=== PATIENT | female | born 1995 | race Hispanic/Latino ===

== ENCOUNTER 2018-11-11 17:04 | Inpatient (IN) | payer BC ==
[2018-11-11] MEDS ORDERED: Morphine 4 MG/ML VIAL IVP STA (17:45)
[2018-11-11] MEDS ORDERED: Sodium Chloride 0.9% 1,000 ML IV STA (17:45)
[2018-11-11] MEDS ORDERED: Iohexol 240 (50 ml) PO STA (17:46)
[2018-11-11] MEDS ORDERED: Iohexol 240 (50 ml) ONE (18:02)
[2018-11-11 18:31] LABS: BASO % 0.5 % (0.0-2.0); EOS # 0.1 K/uL (0.0-0.7); EOS % 1.9 % (0.0-4.0); HEMOGLOBIN 13.6 g/dL (12.0-16.0); LYMPH # 2.3 K/uL (1.0-4.3); LYMPH % 40.7 % (20.0-40.0); MEAN CELL VOLUME 89.6 fl (81.0-99.0); MEAN CORPUSCULAR HGB CONC 33.4 g/dL (33.0-37.0); MEAN PLATELET VOLUME 9.2 fl (7.2-11.7); MONO # 0.6 K/uL (0.0-0.8); MONO % 10.1 % (0.0-10.0); NEUT # 2.7 K/uL (1.8-7.0); NEUT % 46.8 % (50.0-75.0); RBC 4.55 Mil/uL (3.80-5.20); RED CELL DISTRIBUTION WIDTH 12.6 % (11.5-14.5); WHITE BLOOD COUNT 5.8 K/uL (4.8-10.8)
[2018-11-11 18:39] LABS: INR 0.9; PROTHROMBIN TIME 10.3 Seconds (9.8-13.1)
[2018-11-11 18:40] LABS: ALB/GLOB RATIO 1.7 (1.0-2.1); ALBUMIN 4.5 g/dL (3.5-5.0); ALT/SGPT 30 U/L (9-52); AST/SGOT 21 U/L (14-36); BLOOD UREA NITROGEN 11 mg/dl (7-17); GFR NON-AFRICAN AMERICAN > 60
[2018-11-11 18:42] LABS: PARTIAL THROMBOPLASTIN TIME 33.8 Seconds (25.6-37.1)
--- NOTE | 2018-11-11 18:49 | ED PDOC ---
HPI: Abdomen Time Seen by Provider: 11/11/18 17:43 Chief Complaint (Nursing): Abdominal Pain Chief Complaint (Provider): Abdominal Pain History Per: Patient History/Exam Limitations: no limitations Onset/Duration Of Symptoms: Days Current Symptoms Are (Timing): Still Present Additional Complaint(s): 23 y/o female with no significant PMHx presents to the ED for evaluation of RLQ pain since 4 PM yesterday. Patient reports of pain to her right pelvic area and RLQ that occasionally radiates down to the right thigh. Patient notes pain is constant but waxes and wanes in intensity. Patient states pain is severe at onset and occurred suddenly. Patient reports pain worsens with walking, sitting up and eating. Otherwise, patient denies back pain, nausea, vomiting, diarrhea, constipation, fever, chills, vaginal bleeding, vaginal discharge and urinary symptoms. PMD: none provided LNMP: Three Weeks Ago Abnormal Vaginal Bleeding: No Last Menstral Period: three weeks ago Past Medical History Reviewed: Historical Data, Nursing Documentation, Vital Signs Vital Signs: Last Vital Signs Temp 98.0 F 11/11/18 17:45 Pulse 85 11/11/18 17:45 Resp 19 11/11/18 17:45 BP 130/90 11/11/18 17:45 Pulse Ox 100 11/11/18 17:45 - Medical History PMH: Seizures - Surgical History Surgical History: No Surg Hx - Family History Family History: States: No Known Family Hx - Social History Current smoker - smoking cessation education provided: No - Home Medications Home Medications: Ambulatory Orders Medication Instructions Recorded Folic Acid 3 mg PO DAILY 11/11/18 Lamotrigine [Lamictal] 150 mg PO BID 11/11/18 Levonorgestrel-Ethin Estradiol 0.1 mg PO DAILY 11/11/18 [Larissia-28 Tablet] - Allergies Allergies/Adverse Reactions: Allergies Allergy/AdvReac Type Severity Reaction Status Date / Time No Known Allergies Allergy Verified 11/11/18 17:44 Review of Systems ROS Statement: Except As Marked, All Systems Reviewed And Found Negative (as per HPI) Constitutional: Negative for: Fever, Chills Gastrointestinal: Positive for: Abdominal Pain (RLQ). Negative for: Nausea, Vomiting, Diarrhea, Constipation Genitourinary Female: Positive for: Pelvic Pain (right). Negative for: Dysuria, Frequency, Hematuria, Vaginal Discharge, Vaginal Bleeding Musculoskeletal: Positive for: Leg Pain (Right Thigh Pain). Negative for: Back Pain Physical Exam - Reviewed Nursing Documentation Reviewed: Yes Vital Signs Reviewed: Yes - Physical Exam Appears: Positive for: In Acute Distress (ACUTE PAINFUL DISTRESS) Head Exam: Positive for: ATRAUMATIC, NORMOCEPHALIC Skin: Positive for: Warm, Dry Eye Exam: Positive for: EOMI, PERRL ENT: Negative for: Pharyngeal Erythema, Tonsillar Exudate Neck: Positive for: Painless ROM, Supple Cardiovascular/Chest: Positive for: Regular Rate, Rhythm. Negative for: Murmur Respiratory: Positive for: Normal Breath Sounds. Negative for: Respiratory Distress Gastrointestinal/Abdominal: Positive for: Tenderness (RLQ tenderneess to palpation with Positive Rovsings. Negative Obturators Sign and PSOAS Sign). Negative for: Mass, Guarding, Rebound Back: Positive for: Normal Inspection. Negative for: Muscle Spasm Extremity: Positive for: Normal ROM. Negative for: Deformity Lymphatic: Negative for: Adenopathy Neurologic/Psych: Positive for: Alert. Negative for: Motor/Sensory Deficits - Laboratory Results Result Diagrams: 11/12/18 06:14 11/11/18 18:20 Lab Results: PT 10.3 Seconds (9.8-13.1) 11/11/18 18:20 INR 0.9 11/11/18 18:20 APTT 33.8 Seconds (25.6-37.1) 11/11/18 18:20 Total Bilirubin 0.2 mg/dl (0.2-1.3) 11/11/18 18:20 AST 21 U/L (14-36) 11/11/18 18:20 ALT 30 U/L (9-52) 11/11/18 18:20 Alkaline Phosphatase 47 U/L (38-126) 11/11/18 18:20 Total Protein 7.2 G/DL (6.3-8.2) 11/11/18 18:20 Albumin 4.5 g/dL (3.5-5.0) 11/11/18 18:20 Globulin 2.7 gm/dL (2.2-3.9) 11/11/18 18:20 Albumin/Globulin Ratio 1.7 (1.0-2.1) 11/11/18 18:20 - ECG O2 Sat by Pulse Oximetry: 100 (RA) Pulse Ox Interpretation: Normal Medical Decision Making Medical Decision Making: Time: 1748 Impression: RLQ Pain Differential include but not limited to ovarian cysts, ovarian torsion, appendicitis, colitis and mesenteric adenitis. Plan: -- Type and Screen -- CMP -- ED Urine -- ED Urine Dipstick -- CBC with Differentials -- PTT -- Prothrombin Time -- Morphine 2 mg IVP -- Sodium Chlorie IV 1000 mls/hr -- Iohexol 50 ml PO -- IV Insertion -- US Transvaginal Time: 2020 US RESULTS FINDINGS: ENDOMETRIUM: Normal thickness measuring 4.9 mm. UTERUS/CERVIX: The uterus appears within normal limits. No uterine fibroid or other mass evident. RIGHT OVARY: Normal Doppler flow. A 12.2 x 7.1 x 7.9 cm predominantly anechoic mass seen within the right ovary. Some fluid-debris level is noted in the dependent portion of the cyst. The possibility of cystadenoma or cystadenocarcinoma should be considered. LEFT OVARY: Normal Doppler flow. No suspicious mass. A 3.2 x 2.5 x 1.9 cm simple cyst is seen within the left ovary. FREE FLUID: No free fluid. IMPRESSION: 1. A large cystic mass containing internal debris is seen within the right ovary. This is thought likely compatible with ovarian cystadenoma or cystadenocarcinoma. 2. A 3.2 x 2.5 cm cyst is noted within the left ovary. Electronically signed on Nov 11, 2018 8:21:03 PM EST by: Sami Hardin M.D., CHATA Certified By [facility] [facility] Fellowship Trained MRI and CT Specialist -- Discussed with patient findings and need to discuss with in-house SEWING ROOM SUPERVISOR for further management. Time: 2099 -- Dr. Fatima evaluated the patient in the ER. Patient to be hospitalized for surgical resection of ovarian ovarian cystadenoma. Scribe Attestation: Documented by Elizabeth Pena, acting as a scribe for Iman Malone MD. Provider Scribe Attestation: All medical record entries made by the Scribe were at my direction and personally dictated by me. I have reviewed the chart and agree that the record accurately reflects my personal performance of the history, physical exam, medical decision making, and the department course for this patient. I have also personally directed, reviewed, and agree with the discharge instructions and disposition. Disposition - Clinical Impression Clinical Impression: Ovarian cystadenoma, Intractable pain - Patient ED Disposition Is Patient to be Admitted: Yes Counseled Patient/Family Regarding: Studies Performed, Diagnosis - Disposition Disposition Time: 21:00 Condition: FAIR - Pt Status Changed To: Hospital Disposition Of: Inpatient - Admit Certification Admit to Inpatient:: After my assessment, the patient will require hospita lization for at least two midnights. This is because of the severity of symptoms shown, intensity of services needed, and/or the medical risk in this patient being treated as an outpatient. - POA Present On Arrival: None
[2018-11-11] MEDS ORDERED: Midazolam 2 MG/2 ML VIAL ONE (22:18)
[2018-11-11] MEDS ORDERED: Propofol 10 mg/ml Inj (20 ML) ONE (22:18)
[2018-11-11] MEDS ORDERED: Succinylcholine Chloride 20 mg/ml Syr (5 ml) IV ONE (22:19)
[2018-11-11] MEDS ORDERED: Rocuronium 10 mg/ml (5 ml) ONE (22:19)
[2018-11-11] MEDS ORDERED: Lidocaine 2% Jelly (5 ml) TOP ONE (22:20)
--- NOTE | 2018-11-11 22:57 | CP.PCM.HP ---
History of Present Illness - History of Present Illness History of Present Illness: 23-year-old female with acute abdominal pain starting approximately 24 hours ago that has worsened. Patient found to have 12-13 cm adnexal cyst. Patient has required multiple doses of IV morphine due to level of pain. Present on Admission - Present on Admission Any Indicators Present on Admission: No History of DVT/PE: No History of Uncontrolled Diabetes: No Urinary Catheter: No Decubitus Ulcer Present: No Past Patient History - Infectious Disease Hx of Infectious Diseases: None - Past Medical History & Family History Past Medical History?: Yes - Past Social History Smoking Status: Never Smoked - NEUROLOGICAL Hx Seizures: Yes - PSYCHIATRIC Hx Emotional Abuse: No Hx Physical Abuse: No Hx Substance Use: No - SURGICAL HISTORY Hx Surgeries: Yes Other/Comment: wisdom teeth removal - ANESTHESIA Hx Anesthesia: Yes Meds Allergies/Adverse Reactions: Allergies Allergy/AdvReac Type Severity Reaction Status Date / Time No Known Allergies Allergy Verified 11/11/18 17:44 Physical Exam - ENT Exam ENT Exam: Mucous Membranes Moist, Normal Exam - Respiratory Exam Respiratory Exam: Clear to Auscultation Bilateral, NORMAL BREATHING PATTERN - Cardiovascular Exam Cardiovascular Exam: REGULAR RHYTHM - GI/Abdominal Exam GI & Abdominal Exam: Rebound, Tenderness Results - Vital Signs Recent Vital Signs: Last Vital Signs Temp 99 F 11/11/18 22:43 Pulse 89 11/11/18 22:43 Resp 18 11/11/18 22:43 BP 132/81 11/11/18 22:43 Pulse Ox 100 11/11/18 22:43 - Labs Result Diagrams: 11/11/18 18:20 11/11/18 18:20 Labs: Laboratory Results - last 24 hr 11/11/18 11/11/18 11/11/18 18:20 18:20 18:20 WBC 5.8 RBC 4.55 Hgb 13.6 Hct 40.8 MCV 89.6 MCH 30.0 MCHC 33.4 RDW 12.6 Plt Count 273 MPV 9.2 Neut % (Auto) 46.8 L Lymph % (Auto) 40.[address] [place] % (Auto) 10.1 H Eos % (Auto) 1.9 Baso % (Auto) 0.5 Neut # (Auto) 2.7 Lymph # (Auto) 2.3 [place] # (Auto) 0.6 Eos # (Auto) 0.1 Baso # (Auto) 0.0 PT 10.3 INR 0.9 APTT 33.8 Sodium 139 Potassium 4.0 Chloride 100 Carbon Dioxide 25 Anion Gap 18 BUN 11 Creatinine 0.7 Est GFR ( Amer) > 60 Est GFR (Non-Af Amer) > 60 Random Glucose 82 Calcium 10.0 Total Bilirubin 0.2 AST 21 ALT 30 Alkaline Phosphatase 47 Total Protein 7.2 Albumin 4.5 Globulin 2.7 Albumin/Globulin Ratio 1.7 Blood Type Antibody Screen BBK History Checked 11/11/18 18:20 WBC RBC Hgb Hct MCV MCH MCHC RDW Plt Count MPV Neut % (Auto) Lymph % (Auto) [place] % (Auto) Eos % (Auto) Baso % (Auto) Neut # (Auto) Lymph # (Auto) [place] # (Auto) Eos # (Auto) Baso # (Auto) PT INR APTT Sodium Potassium Chloride Carbon Dioxide Anion Gap BUN Creatinine Est GFR ( Amer) Est GFR (Non-Af Amer) Random Glucose Calcium Total Bilirubin AST ALT Alkaline Phosphatase Total Protein Albumin Globulin Albumin/Globulin Ratio Blood Type AB POSITIVE Antibody Screen Negative BBK History Checked No verified bt - Imaging and Cardiology US - abdomen Status: Image reviewed by me, Report reviewed by me Assessment & Plan - Assessment and Plan (Free Text) Assessment: 12-13 cm adnexal cyst, possible torsion. Acute abdominal pain. Plan: Patient consented for laparotomy, removal of adnexal/ovarian cyst, removal of ovaries absolutely necessary. Discussed with patient the risks, benefits, alternatives of surgery and all patient questions answered. - Date & Time Date: 11/11/18 Time: 22:58
[2018-11-11] MEDS ORDERED: Lactated Ringer's 1,000 ML IV ONE (23:05)
[2018-11-11] MEDS ORDERED: ePHEDrine 50 mg/ml Inj ONE (23:21)
[2018-11-12] MEDS: HYDROmorphone 0.5 mg/0.5 ml ISec IVP PRN ×4 (00:20→01:15)
[2018-11-12] MEDS ORDERED: HYDROmorphone 0.5 mg/0.5 ml ISec ONE ×2 (00:22→00:25)
[2018-11-12] MEDS ORDERED: HYDROmorphone 1 mg/ml ISec IVP STA (00:30)
[2018-11-12] MEDS ORDERED: Lactated Ringer's 1,000 ML IV SCH (00:30)
--- NOTE | 2018-11-12 00:59 | PCM.SURG1 ---
Surgeon's Initial Post Op Note - Surgeon's Notes Surgeon: Kushal Glove Brusher: Emir Hendricks Type of Anesthesia: General Endo Anesthesia Administered By: Obey Pre-Operative Diagnosis: Ovarian cyst, acute abdominal pain Operative Findings: Right ovarian simple cyst ~14cm. Right adnexa twisted x 2. Normal left ovary. Normal tubes bilaterally. Normal uterus Post-Operative Diagnosis: Same + adnexal torsion Operation Performed: Laparotomy, right ovarian cystectomy Specimen/Specimens Removed: Right ovarian cyst Estimated Blood Loss: EBL {In ML}: 100 Blood Products Given: N/A Drains Used: No Drains Post-Op Condition: Good Date of Surgery/Procedure: 11/12/18 Time of Surgery/Procedure: 00:59
[2018-11-12] MEDS: Lactated Ringer's 1,000 ML IV SCH (01:00)
[2018-11-12] MEDS: Morphine 4 MG/ML VIAL IVP PRN ×2 (04:42→20:31)
[2018-11-12 06:24] LABS: MEAN CELL VOLUME 89.9 fl (81.0-99.0); MEAN CORPUSCULAR HEMOGLOBIN 30.2 pg (27.0-31.0); MEAN CORPUSCULAR HGB CONC 33.6 g/dL (33.0-37.0); RBC 3.98 Mil/uL (3.80-5.20); RED CELL DISTRIBUTION WIDTH 12.6 % (11.5-14.5)
[2018-11-12] MEDS: Oxycodone/Acetaminophen 5/325 mg Tab PO PRN ×3 (07:39→17:03)
--- NOTE | 2018-11-12 09:34 | US ---
Date of service: 11/11/2018 HISTORY: pelvic pain r/o cyst COMPARISON: None available. TECHNIQUE: Grayscale, color Doppler and spectral evaluation the pelvis performed transabdominally and transvaginally FINDINGS: UTERUS: Measures 7.8 x 3.5 x 3.4 cm. Anteverted. Normal in size and appearance. No fibroid or other mass lesion seen. ENDOMETRIUM: Measures 3 mm in diameter. Unremarkable. CERVIX: No cervical abnormality identified. RIGHT OVARY: Measures 2.8 x 2.0 x 2.1 cm. No solid mass. Large cyst adjacent inferior to right ovary measuring 11.4 x 6.5 x 8.2 cm. Normal flow. LEFT OVARY: Measures 5.0 x 2.6 x 2.6 cm. No solid mass. Cyst measuring 3.0 x 2.3 x 1.8 cm. Normal flow. FREE FLUID: No significant free fluid noted. OTHER FINDINGS: None. IMPRESSION: No sonographic evidence of ovarian torsion. Large right ovarian cyst measuring approximately 11.4 cm. A cyst of this size is difficult to completely evaluate sonographically. Contrast-enhanced MRI can be obtained for further evaluation. Surgical consultation can also be considered. Left ovarian 3.0 cm cyst.
--- NOTE | 2018-11-12 09:58 | CARD ---
APPROVED REPORT Date of service: 11/11/2018 EKG Measurement Heart [id number] <Conclusion> Normal sinus rhythm Normal ECG
--- NOTE | 2018-11-12 13:55 | CP.PCM.PN ---
Subjective - Date & Time of Evaluation Date of Evaluation: 11/12/18 Time of Evaluation: 11:00 - Subjective Subjective: Pt without complaints. Pain well controlled. Tolerating fluids and small amount soft diet. No N/V. No CP,SOB. Objective - Vital Signs/Intake and Output Vital Signs (last 24 hours): Temp Pulse Resp BP Pulse Ox 99.3 F 100 H 19 124/79 96 11/12/18 08:07 11/12/18 08:39 11/12/18 08:07 11/12/18 08:07 11/12/18 08:07 Intake and Output: 11/12/18 11/12/18 06:59 18:59 Intake Total 800 Balance 800 - Medications Medications: Current Medications Lactated Ringer's (Lactated Ringer's) 1,000 mls @ 125 mls/hr IV .Q8H [facility] Last Admin: 11/12/18 01:00 Dose: 0 mls Ketorolac Tromethamine (Toradol) 30 mg IVP ONCE PRN PRN Reason: Pain, Mild (1-3) Last Admin: 11/12/18 01:30 Dose: 30 mg Lamotrigine (Lamictal) 150 mg PO BID [facility] Morphine Sulfate (Morphine) 4 mg IVP Q4 PRN PRN Reason: Pain, severe (8-10) Last Admin: 11/12/18 04:42 Dose: 4 mg Ondansetron HCl (Zofran Inj) 4 mg IVP ONCE PRN PRN Reason: Nausea/Vomiting Last Admin: 11/12/18 11:21 Dose: 4 mg Oxycodone/Acetaminophen (Percocet 5/325 Mg Tab) 2 tab PO Q4 PRN PRN Reason: Pain, moderate (4-7) Stop: 11/15/18 00:54 Last Admin: 11/12/18 12:11 Dose: 2 tab - Labs Labs: 11/12/18 06:14 11/11/18 18:20 PT 10.3 Seconds (9.8-13.1) 11/11/18 18:20 INR 0.9 11/11/18 18:20 APTT 33.8 Seconds (25.6-37.1) 11/11/18 18:20 - Constitutional Appears: Well, No Acute Distress - Head Exam Head Exam: NORMAL INSPECTION - Eye Exam Eye Exam: Normal appearance, PERRL - ENT Exam ENT Exam: Mucous Membranes Moist, Normal Exam - Respiratory Exam Respiratory Exam: Clear to Ausculation Bilateral, NORMAL BREATHING PATTERN - Cardiovascular Exam Cardiovascular Exam: REGULAR RHYTHM - GI/Abdominal Exam GI & Abdominal Exam: Soft. absent: Distended, Tenderness - Extremities Exam Extremities Exam: absent: Calf Tenderness Assessment and Plan - Assessment and Plan (Free Text) Assessment: POD#1 s/p laparotomy, right ovarian cystectomy due to ovarian torsion. Pt recovering well. Plan: Pain control Postop CBC Advance diet to regular as tolerated OOB/Ambulate D/C mckinnon, void check Incentive serina Discussed plan with patient and all patient questions answered Anticipate D/C home tomorrow
[2018-11-13] MEDS: Lactated Ringer's 1,000 ML IV SCH ×4 (01:33→18:21)
[2018-11-13] MEDS: Oxycodone/Acetaminophen 5/325 mg Tab PO PRN ×3 (01:37→18:16)
--- NOTE | 2018-11-13 01:46 | OP ---
PROCEDURE DATE: 11/11/2018 PREOPERATIVE DIAGNOSES: Acute abdominal pain, large ovarian cyst, likely to ovarian torsion. POSTOPERATIVE DIAGNOSES: Acute abdominal pain, large ovarian cyst, ovarian torsion. OPERATION PERFORMED: Laparotomy, right ovarian cystectomy. OPERATIVE FINDINGS: Right ovarian simple cyst approximately 14 cm in size, normal left ovary, normal tubes bilaterally, normal uterus. SURGEON: Rory Fatima MD SHOT HOLE SHOOTER: Juno Hendricks MD. Dr. Hendricks was present from the beginning of the procedure to the end of procedure. Dr. Hendricks was integral in exposing the surgical field, controlling intraoperative bleeding, and surgical removal of ovarian cyst. ANESTHESIOLOGIST: Edgardo Barnhart MD ANESTHESIA: General. COMPLICATIONS: None. DESCRIPTION OF PROCEDURE: The patient was taken to the operating room where general anesthesia was found to be adequate. The patient was prepped and draped in normal sterile fashion in the dorsal supine position. A Pfannenstiel skin incision was made with a scalpel. This was carried down through to the underlying layer of fascia with the scalpel. A midline defect was made in the fascial layer with the scalpel. The fascial incision was then extended bilaterally with curved Lee scissors. The fascial layer was from the underlying rectus muscles, both bluntly and sharply with curved Lee scissors. The rectus muscles were at the midline. The peritoneum was then identified, tented up with Verito clamps x2, and entered sharply with Metzenbaum scissors. This peritoneal incision was then extended superiorly and inferiorly with good visualization of the urinary bladder. The abdomen and pelvis were explored and the above findings noted. The right ovarian cyst was exteriorized. The ovarian cyst was drained. An approximately 6 cm incision was placed on the ovary and ovarian cyst. The ovarian cyst wall was removed from the ovary bluntly and sharply with Metzenbaum scissors. The ovarian cyst wall was sent to pathology. The ovary was closed with 2-0 Vicryl in a series of imbricating sutures in three layers. After closure of ovarian incision, the incision was found to be hemostatic. Upon entry into the pelvis, the ovary was found to be twisted x2. The abdomen and pelvis were irrigated with copious amounts of warm normal saline. Re-inspection of the right ovary proved hemostasis. All instruments were removed from the patient. The peritoneal layer was closed with a running suture of 2-0 chromic. The rectus muscles were reapproximated at the midline with a running stitch of 2-0 chromic. The fascial layer was closed with a running stitch of 0 Vicryl. The subcutaneous tissue was closed with a running stitch of 3-0 plain. The skin was closed with subcutaneous stitch of 3-0 Vicryl. The patient tolerated the procedure well. All sponge, lap, and needle counts were correct x2. The patient was given 1 g of Ancef intraoperatively. There were no complications. The patient was taken to the recovery room in awake and stable condition. Rory Fatima MD
[2018-11-13 03:34] VITALS: RESP 20
[2018-11-13] MEDS: Morphine 4 MG/ML VIAL IVP PRN (07:53)
[2018-11-13 08:21] VITALS: O2SAT 98
--- NOTE | 2018-11-13 09:17 | CP.PCM.PN ---
<Charlotte Padilla - Last Filed: 11/13/18 11:31> Subjective - Date & Time of Evaluation Date of Evaluation: 11/13/18 Time of Evaluation: 11:03 - Subjective Subjective: Pt is a 23 yo F POD#2 s/p laparotomy, right ovarian cystectomy due to ovarian torsion. Pt doing well, pain controlled with medication. Has nausea when woke up controlled with zofran. Pt voiding freely, has not passed a BM or flatus. Tolerating small amounts of food.Denies fever, chills, SOB, chest pain, vomiting, diarrhea, constipation or dysuria. Objective - Vital Signs/Intake and Output Vital Signs (last 24 hours): Temp Pulse Resp BP Pulse Ox 97.9 F 85 20 165/70 H 98 11/13/18 08:21 11/13/18 08:21 11/13/18 08:21 11/13/18 08:21 11/13/18 08:21 - Medications Medications: Current Medications Lactated Ringer's (Lactated Ringer's) 1,000 mls @ 125 mls/hr IV .Q8H [facility] Last Admin: 11/13/18 03:28 Dose: 125 mls/hr Ketorolac Tromethamine (Toradol) 30 mg IVP ONCE PRN PRN Reason: Pain, Mild (1-3) Last Admin: 11/12/18 01:30 Dose: 30 mg Lamotrigine (Lamictal) 150 mg PO BID [facility] Last Admin: 11/12/18 14:03 Dose: 150 mg Morphine Sulfate (Morphine) 4 mg IVP Q4 PRN PRN Reason: Pain, severe (8-10) Last Admin: 11/13/18 07:53 Dose: 4 mg Ondansetron HCl (Zofran Inj) 4 mg IVP ONCE PRN PRN Reason: Nausea/Vomiting Last Admin: 11/13/18 07:52 Dose: 4 mg Oxycodone/Acetaminophen (Percocet 5/325 Mg Tab) 2 tab PO Q4 PRN PRN Reason: Pain, moderate (4-7) Stop: 11/15/18 00:54 Last Admin: 11/13/18 01:37 Dose: 2 tab - Labs Labs: 11/12/18 06:14 11/11/18 18:20 PT 10.3 Seconds (9.8-13.1) 11/11/18 18:20 INR 0.9 11/11/18 18:20 APTT 33.8 Seconds (25.6-37.1) 11/11/18 18:20 - Constitutional Appears: Non-toxic, No Acute Distress - Head Exam Head Exam: NORMAL INSPECTION, NORMOCEPHALIC - Eye Exam Eye Exam: EOMI, Normal appearance - ENT Exam ENT Exam: Mucous Membranes Moist - Respiratory Exam Respiratory Exam: Clear to Ausculation Bilateral. absent: Rales, Rhonchi, Wheezes - Cardiovascular Exam Cardiovascular Exam: RRR, +S1, +S2 - GI/Abdominal Exam GI & Abdominal Exam: Soft, Tenderness (appropriate after surgery ), Normal Bowel Sounds. absent: Guarding, Rigid, Rebound Additional comments: Transverse laparotomy incision clean dry healing well, no erythema, no drainage - Extremities Exam Extremities Exam: Normal Inspection - Neurological Exam Neurological Exam: Alert, Awake, Oriented x3 Assessment and Plan - Assessment and Plan (Free Text) Assessment: Pt is a 23 yo F POD#2 s/p laparotomy, right ovarian cystectomy due to ovarian torsion. Pt recovering well. Plan: Pain control Nausea control Postop CBC H/H 12.0/35.8 Regular diet- advance as tolerated Ambulating well Voiding freely c/w Incentive serina Anticipate D/C home today follow up with Dr. Fatima in 1 week <Sangeeta Hdez - Last Filed: 11/13/18 17:04> Objective - Vital Signs/Intake and Output Vital Signs (last 24 hours): Temp Pulse Resp BP Pulse Ox 98.4 F 108 H 20 125/87 98 11/13/18 15:44 11/13/18 15:44 11/13/18 15:44 11/13/18 15:44 11/13/18 15:44 - Medications Medications: Current Medications Docusate Sodium (Colace) 100 mg PO DAILY [facility] Last Admin: 11/13/18 14:32 Dose: 100 mg Lactated Ringer's (Lactated Ringer's) 1,000 mls @ 125 mls/hr IV .Q8H [facility] Last Admin: 11/13/18 10:05 Dose: Not Given Ibuprofen (Motrin Tab) 600 mg PO Q6 [facility] Lamotrigine (Lamictal) 150 mg PO BID [facility] Last Admin: 11/13/18 10:06 Dose: 150 mg Ondansetron HCl (Zofran Tab) 4 mg PO Q4 PRN PRN Reason: Nausea/Vomiting Oxycodone/Acetaminophen (Percocet 5/325 Mg Tab) 2 tab PO Q4 PRN PRN Reason: Pain, moderate (4-7) Stop: 11/15/18 00:54 Last Admin: 11/13/18 12:11 Dose: 2 tab Simethicone (Mylicon Chew Tab) 80 mg PO [facility] Last Admin: 11/13/18 14:32 Dose: 80 mg - Labs Labs: 11/12/18 06:14 11/11/18 18:20 PT 10.3 Seconds (9.8-13.1) 11/11/18 18:20 INR 0.9 11/11/18 18:20 APTT 33.8 Seconds (25.6-37.1) 11/11/18 18:20 Assessment and Plan - Assessment and Plan (Free Text) Assessment: Addendum by Dr. Hdez: I have evaluated the patient independently and I agree with the above. The patient was evaluated by myself, Dr. Padilla and Dr. Bryan. The patient reported no flatus and no BM, BS were heard in 4 quadrants, pt denies vomiting/diarrhea. Has mild nausea. Incision clean/dry/intact. Discussed with patient needs to be observed until flatus is passed. Do not suspect an ileus/SBO at this time. Colace/Mylicon prescribed to patient, regular diet/encouraged ambulation, PO pain medication. Patient re-evalauted later in the afternoon and still no flatus. Will observe until carol
[2018-11-13] MEDS: Simethicone 80 mg Chewtab PO SCH ×2 (14:32→18:26)
[2018-11-13 15:45] VITALS: BP 125/87; PULSE 108; TEMP 98.4
--- NOTE | 2018-11-13 21:35 | CP.PCM.DIS ---
Provider - Provider Date of Admission: 11/11/18 21:02 Attending physician: Rory Fatima MD Primary care physician: None provided Consults: 11/11/18 20:20 Gynocology [VALET CASHIER Consult] Stat Comment: Consulting Provider: Rory Fatima Consulting Physician: Rory Fatima Reason for Consult: Large painful ovarian cyst Time Spent in preparation of Discharge (in minutes): 15 Diagnosis - Discharge Diagnosis (1) Ovarian cyst, right Status: Acute Comment: resolved, s/p laparotomy ovarian cystectomy due to ovarian torsion. Doing well POD 2, pain controlled with medication. Tolerating oral intake. Ambulating well, Voiding well. Passing flatus. D/C today with outpt f/u in [address] Fatima (2) Intractable pain Status: Acute Comment: resolved, s/p procedure Hospital Course - Lab Results Lab Results: Most Recent Lab Values WBC 13.0 K/uL (4.8-10.8) H D 11/12/18 06:14 RBC 3.98 Mil/uL (3.80-5.20) 11/12/18 06:14 Hgb 12.0 g/dL (12.0-16.0) 11/12/18 06:14 Hct 35.8 % (34.0-47.0) 11/12/18 06:14 MCV 89.9 fl (81.0-99.0) 11/12/18 06:14 MCH 30.2 pg (27.0-31.0) 11/12/18 06:14 MCHC 33.6 g/dL (33.0-37.0) 11/12/18 06:14 RDW 12.6 % (11.5-14.5) 11/12/18 06:14 Plt Count 255 K/uL (130-400) 11/12/18 06:14 MPV 9.2 fl (7.2-11.7) 11/11/18 18:20 Neut % (Auto) 46.8 % (50.0-75.0) L 11/11/18 18:20 Lymph % (Auto) 40.7 % (20.0-40.0) H 11/11/18 18:20 [place] % (Auto) 10.1 % (0.0-10.0) H 11/11/18 18:20 Eos % (Auto) 1.9 % (0.0-4.0) 11/11/18 18:20 Baso % (Auto) 0.5 % (0.0-2.0) 11/11/18 18:20 Neut # (Auto) 2.7 K/uL (1.8-7.0) 11/11/18 18:20 Lymph # (Auto) 2.3 K/uL (1.0-4.3) 11/11/18 18:20 [place] # (Auto) 0.6 K/uL (0.0-0.8) 11/11/18 18:20 Eos # (Auto) 0.1 K/uL (0.0-0.7) 11/11/18 18:20 Baso # (Auto) 0.0 K/uL (0.0-0.2) 11/11/18 18:20 PT 10.3 Seconds (9.8-13.1) 11/11/18 18:20 INR 0.9 11/11/18 18:20 APTT 33.8 Seconds (25.6-37.1) 11/11/18 18:20 Sodium 139 mmol/l (132-148) 11/11/18 18:20 Potassium 4.0 MMOL/L (3.6-5.0) 11/11/18 18:20 Chloride 100 mmol/L (98-107) 11/11/18 18:20 Carbon Dioxide 25 mmol/L (22-30) 11/11/18 18:20 Anion Gap 18 (10-20) 11/11/18 18:20 BUN 11 mg/dl (7-17) 11/11/18 18:20 Creatinine 0.7 mg/dl (0.7-1.2) 11/11/18 18:20 Est GFR ( Amer) > 60 11/11/18 18:20 Est GFR (Non-Af Amer) > 60 11/11/18 18:20 Random Glucose 82 mg/dL (65-105) 11/11/18 18:20 Calcium 10.0 mg/dL (8.4-10.2) 11/11/18 18:20 Total Bilirubin 0.2 mg/dl (0.2-1.3) 11/11/18 18:20 AST 21 U/L (14-36) 11/11/18 18:20 ALT 30 U/L (9-52) 11/11/18 18:20 Alkaline Phosphatase 47 U/L (38-126) 11/11/18 18:20 Total Protein 7.2 G/DL (6.3-8.2) 11/11/18 18:20 Albumin 4.5 g/dL (3.5-5.0) 11/11/18 18:20 Globulin 2.7 gm/dL (2.2-3.9) 11/11/18 18:20 Albumin/Globulin Ratio 1.7 (1.0-2.1) 11/11/18 18:20 Blood Type AB POSITIVE 11/11/18 18:20 Blood Type Confirm AB POSITIVE 11/11/18 19:54 Antibody Screen Negative 11/11/18 18:20 BBK History Checked No verified bt 11/11/18 18:20 - Hospital Course Hospital Course: Pt is a 23 yo F presented to ED on 11/11/18 with RLQ pain admitted due to R ovarian cyst with intractable abdominal pain. TV U/S 12.2 x 7.1 x 7.9 cm predominantly anechoic mass seen within the right ovary. Laparotomy performed with right ovarian cystectomy due to ovarian adnexal torsion, retrieved 14cm cyst. Today pt is POD#2, doing well, pain and nausea controlled with medication. Pt voiding freely, has passed gas multiple times this evening, no bowel movement yet. Tolerating oral intake without nausea or vomiting. Denies fever, chills, SOB, chest pain, diarrhea or dysuria. Pt is hemodynamically stable for discharge with outpt follow up with Dr. Fatima in 1 week. Discharge Exam - Head Exam Head Exam: NORMAL INSPECTION, NORMOCEPHALIC - Eye Exam Eye Exam: EOMI - ENT Exam ENT Exam: Mucous Membranes Moist - Respiratory Exam Respiratory Exam: Clear to PA & Lateral, NORMAL BREATHING PATTERN. absent: Rales, Rhonchi, Wheezes - Cardiovascular Exam Cardiovascular Exam: RRR, +S1, +S2 - GI/Abdominal Exam GI & Abdominal Exam: Hyperactive Bowel Sounds, Soft, Tenderness (appropriate tenderness to palpation). absent: Distended, Guarding, Rebound, Rigid Additional comments: Transverse laparotomy incision clean dry healing well, no erythema, no drainage - Extremities Exam Extremities exam: normal inspection - Neurological Exam Neurological exam: Alert, Oriented x3 Discharge Plan - Discharge Medications Prescriptions: Ibuprofen [Motrin Tab] 600 mg PO Q6 #30 tab oxyCODONE/Acetaminophen [Percocet 5/325 mg Tab] 2 tab PO Q6 #20 tab - Follow Up Plan Condition: FAIR Disposition: HOME/ ROUTINE Instructions: Ovarian Cyst Removal, Open Surgery, Ovarian Cyst (DC) Additional Instructions: follow up with dr fatima 1 week No heavy lifting, no strenuous activities If fever, severe abdominal pain not improving with medication come back to ED Continue with Ibuprofen and percocet for pain, and colace/mylicon OTC Referrals: Juno Hendricks MD [Staff Provider] - Rory Fatima MD [Staff Provider] -
== END 2018-11-13 19:25 | disposition home or self-care (01) | DRG 743 ==
LOC: H.ER 17:04 → H.ERHOLD 21:02 → H.MEDSURG1 11-12 02:05
PROVIDERS: ADMIT Obstetrics & Gynecology; ATTEND Obstetrics & Gynecology
PROC: 0UB00ZZ Excision of Right Ovary, Open Approach (ICD-10-PCS; principal; 2018-11-11 22:30)
DX: N83.291 Other ovarian cyst, right side (principal); N83.511 Torsion of right ovary and ovarian pedicle; R56.9 Unspecified convulsions; Z79.899 Other long term (current) drug therapy